=== PATIENT | female | born 1945 | race Hispanic/Latino ===

== ENCOUNTER 2022-05-08 07:34 | Outpatient (CLI) | payer MEDICARE | END 2022-05-08 07:35 | disposition home or self-care (01) | LOC: CSHCP 07:34 | PROVIDERS: ATTEND Internal Medicine | DX: R05.3 Chronic cough (principal); J84.10 Pulmonary fibrosis, unspecified; J47.9 Bronchiectasis, uncomplicated; R91.8 Other nonspecific abnormal finding of lung field | CPT/HCPCS: 71250; 94010; 94726; 94729; 94760 ==